=== PATIENT | female | born 1955 | race Two or more races ===

== ENCOUNTER 2020-03-06 16:15 | Inpatient (IN) | payer MEDICAID, OTHER ==
[~2020-03-06] VITALS: Ht 165.1 cm; Wt 99.0 kg
[2020-03-06] MEDS ORDERED: SODIUM CHLORIDE 0.9% 1,000 ML IVB ONE (18:15)
[2020-03-06] MEDS ORDERED: metroNIDAZOLE 500MG/100ML 100 ML IV ONE (19:30)
[2020-03-06] MEDS ORDERED: AZITHROMYCIN 500MG/ 250ML 250 ML IV ONE (19:30)
[2020-03-06 19:49] LABS: Basophils # (auto) 0 10 ^3/uL (0-0.2); Basophils % (auto) 0.4 % (0.0-2.0); Eosinophils # (auto) 0 10 ^3/uL (0-0.8); Eosinophils % (auto) 0.4 % (0.0-7.0); Hematocrit 32.9 % (36.0-46.0); Hemoglobin 10.9 g/dL (12.2-16.2); Lymphocytes # (auto) 0.6 10 ^3/uL (0.4-5.4); Mean Corpuscular Hemoglobin 30.9 pg (28.0-32.0); Mean Corpuscular Volume 93.6 fL (80.0-100.0); Monocytes # (auto) 0.3 10 ^3/uL (0-1.3); Neutrophils # (auto) 1.3 10 ^3/uL (1.6-8.6); Neutrophils % (auto) 58.2 % (37.0-80.0); Nucleated Red Blood Cells % 0.4 %; Platelet Count (auto) 107 10^3/uL (140-450); Red Blood Cells 3.51 10^6/uL (4.0-5.20); Red Cell Distribution Width 14.6 % (11.8-14.3); White Blood Cell 2.2 10^3/uL (4.4-10.8)
[2020-03-06 20:03] LABS: INR 1.09 (0.9-1.15); Partial Thromboplastin Time 36.6 sec (23.0-31.2)
[2020-03-06 20:06] LABS: Calcium 8.6 mg/dL (8.5-10.1); Potassium 4.6 mmol/L (3.5-5.1)
[2020-03-06 20:13] LABS: Bilirubin, Total 0.6 mg/dL (0.2-1.0); Total Protein 8.9 g/dL (6.4-8.2)
[2020-03-06] MEDS ORDERED: DEXTROSE 50% SYRINGE 50 ML IV ONE ×2 (20:27→20:28)
[2020-03-07] MEDS ORDERED: DEXTROSE (50%) 50ML SYRG IV ONE (01:00)
[2020-03-07] MEDS: ACCU-CHEK COMFORT CURVE STRIP VI SCH ×4 (05:48→18:03)
[2020-03-07 07:33] LABS: Basophils # (auto) 0 10 ^3/uL (0-0.2); Eosinophils # (auto) 0 10 ^3/uL (0-0.8); Lymphocytes # (auto) 0.4 10 ^3/uL (0.4-5.4); Monocytes # (auto) 0.2 10 ^3/uL (0-1.3); Neutrophils # (auto) 1.3 10 ^3/uL (1.6-8.6); Neutrophils % (auto) 69.4 % (37.0-80.0); Nucleated Red Blood Cells % 0.2 %; Platelet Count (auto) 91 10^3/uL (140-450)
[2020-03-07 07:36] LABS: Basophils % (auto) 0.3 % (0.0-2.0); Eosinophils % (auto) 0.3 % (0.0-7.0); Hematocrit 28.4 % (36.0-46.0); Hemoglobin 9.4 g/dL (12.2-16.2); Lymphocytes % (auto) 19.2 % (10.0-50.0); Mean Corpuscular Hemoglobin 31.2 pg (28.0-32.0); Mean Corpuscular Hgb Conc. 33.1 g/dL (32.0-36.0); Monocytes % (auto) 10.8 % (0.0-12.0); Red Blood Cells 3.02 10^6/uL (4.0-5.20); Red Cell Distribution Width 14.7 % (11.8-14.3)
[2020-03-07 07:45] LABS: Potassium 4.6 mmol/L (3.5-5.1)
[2020-03-07 07:57] LABS: Albumin 3.5 g/dL (3.4-5.0); BUN/Creatinine Ratio 4.2; Bilirubin, Total 0.5 mg/dL (0.2-1.0); Total Protein 7.4 g/dL (6.4-8.2)
[2020-03-07 08:07] LABS: Calcium 7.6 mg/dL (8.5-10.1)
[2020-03-07 08:33] LABS: White Blood Cell 1.9 10^3/uL (4.4-10.8)
[2020-03-07] MEDS ORDERED: SODIUM CHL 0.9% 1000 ML BAG XX ONE (09:15)
[2020-03-07] MEDS ORDERED: PIPERACILLIN-TAZOB 2.25GM 50 ML IV SCH (10:00)
[2020-03-07] MEDS: ZINC SULFATE 220mg CAP or TAB PO SCH (10:00)
[2020-03-07] MEDS: DexAMETHasone SOD PHOS 10MG/1ML VIAL INJ IV SCH (10:00)
[2020-03-07] MEDS: ASCORBIC ACID 500 MG TAB PO SCH ×2 (10:00→21:01)
[2020-03-07] MEDS: CHOLECALCIFEROL (VITD3) 2,000 UNIT CAP PO SCH (10:00)
[2020-03-07] MEDS ORDERED: MORPHINE SULF INJ 2 MG/ML SYRINGE 1ML IV PRN (12:00)
[2020-03-07] MEDS: AZITHROMYCIN 500MG/ 250ML 250 ML IV SCH (16:28)
[2020-03-07] MEDS ORDERED: EPOETIN ALFA 10,000 UNIT/1 ML VIAL SC ONE (21:00)
[2020-03-08] MEDS: ACCU-CHEK COMFORT CURVE STRIP VI SCH ×4 (00:17→18:44)
[2020-03-08 04:40] LABS: Basophils # (auto) 0 10 ^3/uL (0-0.2); Basophils % (auto) 0.4 % (0.0-2.0); Eosinophils # (auto) 0 10 ^3/uL (0-0.8); Eosinophils % (auto) 0.1 % (0.0-7.0); Hematocrit 28.7 % (36.0-46.0); Hemoglobin 9.7 g/dL (12.2-16.2); Lymphocytes # (auto) 0.5 10 ^3/uL (0.4-5.4); Lymphocytes % (auto) 17.3 % (10.0-50.0); Mean Corpuscular Hemoglobin 31.2 pg (28.0-32.0); Mean Corpuscular Hgb Conc. 33.8 g/dL (32.0-36.0); Mean Corpuscular Volume 92.2 fL (80.0-100.0); Monocytes # (auto) 0.3 10 ^3/uL (0-1.3); Monocytes % (auto) 10.5 % (0.0-12.0); Neutrophils # (auto) 1.9 10 ^3/uL (1.6-8.6); Neutrophils % (auto) 71.7 % (37.0-80.0); Nucleated Red Blood Cells % 0.1 %; Platelet Count (auto) 95 10^3/uL (140-450); Red Blood Cells 3.11 10^6/uL (4.0-5.20); Red Cell Distribution Width 14.2 % (11.8-14.3); White Blood Cell 2.7 10^3/uL (4.4-10.8)
[2020-03-08 04:55] LABS: Calcium 8.7 mg/dL (8.5-10.1); Magnesium 2.3 mg/dL (1.6-2.6); Potassium 4.5 mmol/L (3.5-5.1)
[2020-03-08] MEDS ORDERED: REMDESIVIR PER PHARMACY 0 ML IV SCH (09:15)
[2020-03-08] MEDS: ASCORBIC ACID 500 MG TAB PO SCH ×2 (10:00→22:00)
[2020-03-08] MEDS: AZITHROMYCIN 500MG/ 250ML 250 ML IV SCH (10:00)
[2020-03-08] MEDS: DexAMETHasone SOD PHOS 10MG/1ML VIAL INJ IV SCH (10:00)
[2020-03-08] MEDS: CHOLECALCIFEROL (VITD3) 2,000 UNIT CAP PO SCH (10:00)
[2020-03-08] MEDS: ZINC SULFATE 220mg CAP or TAB PO SCH (10:00)
[2020-03-08] MEDS: REMDESIVIR 200 MG in NS 210ml LOADING DOSE ADULT IV ONE ×2 (14:18→15:49)
[2020-03-09] VITALS: BP 143/58
[2020-03-09] MEDS ORDERED: GLYB1.257 PO (03:37)
[2020-03-09] MEDS ORDERED: LEV50T PO (03:37)
[2020-03-09] MEDS ORDERED: CINA30TA2 PO (03:37)
[2020-03-09] MEDS ORDERED: SEVE800T8 PO (03:37)
[2020-03-09] MEDS ORDERED: FOLI1TAB6 PO (03:37)
[2020-03-09] MEDS ORDERED: HYDR-4833 PO (03:37)
[2020-03-09] MEDS ORDERED: APIX5TAB PO (03:37)
[2020-03-09] MEDS ORDERED: ATOR10TA52 PO (03:37)
[2020-03-09] MEDS ORDERED: GABA100C9 PO (03:37)
[2020-03-09] MEDS ORDERED: MIDO5TAB2 PO (03:37)
[2020-03-09] MEDS ORDERED: B-COTAB10 PO (03:37)
[2020-03-09 06:35] LABS: Basophils # (auto) 0 10 ^3/uL (0-0.2); Basophils % (auto) 0.1 % (0.0-2.0); Eosinophils # (auto) 0 10 ^3/uL (0-0.8); Hematocrit 33.5 % (36.0-46.0); Lymphocytes # (auto) 0.3 10 ^3/uL (0.4-5.4); Lymphocytes % (auto) 15.1 % (10.0-50.0); Mean Corpuscular Hemoglobin 30.3 pg (28.0-32.0); Mean Corpuscular Hgb Conc. 32.8 g/dL (32.0-36.0); Mean Corpuscular Volume 92.4 fL (80.0-100.0); Monocytes # (auto) 0.2 10 ^3/uL (0-1.3); Monocytes % (auto) 9.4 % (0.0-12.0); Neutrophils # (auto) 1.5 10 ^3/uL (1.6-8.6); Neutrophils % (auto) 75.4 % (37.0-80.0); Nucleated Red Blood Cells % 0.1 %; Platelet Count (auto) 106 10^3/uL (140-450); Red Blood Cells 3.63 10^6/uL (4.0-5.20); Red Cell Distribution Width 14.4 % (11.8-14.3); White Blood Cell 2.1 10^3/uL (4.4-10.8)
[2020-03-09 07:11] LABS: BUN/Creatinine Ratio 5.4; Magnesium 2.8 mg/dL (1.6-2.6)
[2020-03-09] MEDS: ACCU-CHEK COMFORT CURVE STRIP VI SCH ×5 (07:12→22:00)
[2020-03-09 08:00] VITALS: BP 99/53
[2020-03-09] MEDS: CHOLECALCIFEROL (VITD3) 2,000 UNIT CAP PO SCH ×2 (10:00→12:17)
[2020-03-09] MEDS: ZINC SULFATE 220mg CAP or TAB PO SCH ×2 (10:00→12:17)
[2020-03-09] MEDS: ASCORBIC ACID 500 MG TAB PO SCH ×3 (10:00→22:48)
[2020-03-09] MEDS: AZITHROMYCIN 500MG/ 250ML 250 ML IV SCH (12:16)
[2020-03-09] MEDS: DexAMETHasone SOD PHOS 10MG/1ML VIAL INJ IV SCH (12:17)
[2020-03-09] MEDS: HEPARIN SODIUM (PORCINE) 5000 UNITS/ML 1ML VIAL SC SCH ×2 (14:56→22:49)
[2020-03-09 16:29] VITALS: BP 127/54
[2020-03-09] MEDS: REMDESIVIR 100 MG in SODIUM CHL 0.9% 250 ML IV SCH (17:47)
[2020-03-09] MEDS ORDERED: DEXTROSE (50%) 50ML SYRG IV PRN (19:00)
[2020-03-09] MEDS: metroNIDAZOLE 500MG/100ML 100 ML IV SCH (22:47)
[2020-03-09] MEDS: InsuLIN REG 1unit/0.01ml Soln (100units/ml) SC SCH (22:52)
[2020-03-10] VITALS: BP 118/43
[2020-03-10] MEDS: HEPARIN SODIUM (PORCINE) 5000 UNITS/ML 1ML VIAL SC SCH ×3 (06:20→21:48)
[2020-03-10] MEDS: metroNIDAZOLE 500MG/100ML 100 ML IV SCH ×3 (06:20→21:47)
[2020-03-10] MEDS: ACCU-CHEK COMFORT CURVE STRIP VI SCH ×4 (06:22→21:48)
[2020-03-10] MEDS: InsuLIN REG 1unit/0.01ml Soln (100units/ml) SC SCH ×4 (06:22→21:48)
[2020-03-10] MEDS ORDERED: SODIUM CHL 0.9% 1000 ML BAG XX ONE (07:00)
[2020-03-10 08:00] VITALS: BP 122/70
[2020-03-10] MEDS: DexAMETHasone SOD PHOS 10MG/1ML VIAL INJ IV SCH (09:10)
[2020-03-10] MEDS: AZITHROMYCIN 500MG/ 250ML 250 ML IV SCH (09:10)
[2020-03-10] MEDS: ASCORBIC ACID 500 MG TAB PO SCH ×2 (09:11→21:47)
[2020-03-10] MEDS: ZINC SULFATE 220mg CAP or TAB PO SCH (09:11)
[2020-03-10] MEDS: CHOLECALCIFEROL (VITD3) 2,000 UNIT CAP PO SCH (09:11)
[2020-03-10] MEDS ORDERED: CIPROFLOXACIN 400MG/200ML 200 ML IV SCH (10:00)
[2020-03-10 10:05] LABS: Albumin 3.3 g/dL (3.4-5.0); Calcium 8.6 mg/dL (8.5-10.1); Potassium 5.5 mmol/L (3.5-5.1)
[2020-03-10 10:33] LABS: Bilirubin, Total 0.5 mg/dL (0.2-1.0); Total Protein 7.9 g/dL (6.4-8.2)
[2020-03-10 16:00] VITALS: BP 107/45
[2020-03-10] MEDS: REMDESIVIR 100 MG in SODIUM CHL 0.9% 250 ML IV SCH (17:04)
[2020-03-10] MEDS: ALBUTEROL SULF HFA 90MCG INH 200DOSE IN PRN (19:30)
[2020-03-10] MEDS: PANTOPRAZOLE 40 MG/10 ML VIAL INJ IV SCH (21:47)
[2020-03-11] VITALS: BP 118/84
[2020-03-11] MEDS: metroNIDAZOLE 500MG/100ML 100 ML IV SCH ×2 (05:28→14:00)
[2020-03-11] MEDS: HEPARIN SODIUM (PORCINE) 5000 UNITS/ML 1ML VIAL SC SCH (05:29)
[2020-03-11] MEDS: InsuLIN REG 1unit/0.01ml Soln (100units/ml) SC SCH ×2 (06:31→11:30)
[2020-03-11] MEDS: ACCU-CHEK COMFORT CURVE STRIP VI SCH ×2 (06:31→11:30)
[2020-03-11 08:00] VITALS: BP 154/64
[2020-03-11 09:19] LABS: Basophils # (auto) 0 10 ^3/uL (0-0.2); Eosinophils # (auto) 0 10 ^3/uL (0-0.8); Hematocrit 34.6 % (36.0-46.0); Hemoglobin 11.3 g/dL (12.2-16.2); Lymphocytes # (auto) 0.3 10 ^3/uL (0.4-5.4); Lymphocytes % (auto) 8.2 % (10.0-50.0); Mean Corpuscular Hemoglobin 29.7 pg (28.0-32.0); Mean Corpuscular Hgb Conc. 32.7 g/dL (32.0-36.0); Mean Corpuscular Volume 90.8 fL (80.0-100.0); Monocytes # (auto) 0.3 10 ^3/uL (0-1.3); Monocytes % (auto) 10.2 % (0.0-12.0); Neutrophils # (auto) 2.8 10 ^3/uL (1.6-8.6); Neutrophils % (auto) 81.6 % (37.0-80.0); Nucleated Red Blood Cells % 0.1 %; Platelet Count (auto) 145 10^3/uL (140-450); Red Blood Cells 3.82 10^6/uL (4.0-5.20); Red Cell Distribution Width 14.5 % (11.8-14.3); White Blood Cell 3.4 10^3/uL (4.4-10.8)
[2020-03-11] MEDS: ALBUTEROL SULF HFA 90MCG INH 200DOSE IN PRN (09:28)
[2020-03-11 09:32] LABS: Potassium 4.7 mmol/L (3.5-5.1)
[2020-03-11 09:43] LABS: Bilirubin, Total 0.6 mg/dL (0.2-1.0); Calcium 8.7 mg/dL (8.5-10.1); Magnesium 2.5 mg/dL (1.6-2.6); Total Protein 7.3 g/dL (6.4-8.2)
[2020-03-11] MEDS: ZINC SULFATE 220mg CAP or TAB PO SCH (10:00)
[2020-03-11] MEDS: AZITHROMYCIN 500MG/ 250ML 250 ML IV SCH (10:00)
[2020-03-11] MEDS: PANTOPRAZOLE 40 MG/10 ML VIAL INJ IV SCH (10:00)
[2020-03-11] MEDS: ASCORBIC ACID 500 MG TAB PO SCH (10:02)
[2020-03-11] MEDS: CHOLECALCIFEROL (VITD3) 2,000 UNIT CAP PO SCH (10:03)
[2020-03-11] MEDS: DexAMETHasone SOD PHOS 10MG/1ML VIAL INJ IV SCH (10:03)
[2020-03-11 14:32] VITALS: BP 154/64
[2020-03-11] MEDS: REMDESIVIR 100 MG in SODIUM CHL 0.9% 250 ML IV SCH (15:21)
[2020-03-11 16:00] VITALS: BP 140/71
[2020-03-11] MEDS ORDERED: CIPROFLOXACIN HYDROCHLORIDE 250 MG TAB PO SCH ×2 (22:00)
[2020-03-12] MEDS ORDERED: SODIUM CHL 0.9% 1000 ML BAG XX ONE (07:00)
== END 2020-03-11 17:30 | disposition home or self-care (01) | DRG 720 ==
LOC: EDBD 16:15 → ER 16:15 → TELE 16:16 → TELE-EAST 03-08 23:47
PROVIDERS: ADMIT Nurse Practitioner Family; ATTEND Internal Medicine
PROC: 5A1D70Z Performance of Urinary Filtration, Intermittent, Less than 6 Hours Per Day (ICD-10-PCS; principal; 2020-03-08)
PROC: XW033E5 Introduction of Remdesivir Anti-infective into Peripheral Vein, Percutaneous Approach, New Technology Group 5 (ICD-10-PCS; 2020-03-08)
PROC: 5A1D70Z Performance of Urinary Filtration, Intermittent, Less than 6 Hours Per Day (ICD-10-PCS; 2020-03-10)
DX: A41.89 Other specified sepsis (principal); U07.1 COVID-19; J12.89 Other viral pneumonia; J96.01 Acute respiratory failure with hypoxia; K52.9 Noninfective gastroenteritis and colitis, unspecified; K80.20 Calculus of gallbladder without cholecystitis without obstruction; N18.6 End stage renal disease; Z99.2 Dependence on renal dialysis; D63.8 Anemia in other chronic diseases classified elsewhere; D69.6 Thrombocytopenia, unspecified; E87.1 Hypo-osmolality and hyponatremia; E66.01 Morbid (severe) obesity due to excess calories; Z68.34 Body mass index [BMI] 34.0-34.9, adult; Z88.0 Allergy status to penicillin; E11.22 Type 2 diabetes mellitus with diabetic chronic kidney disease; E78.5 Hyperlipidemia, unspecified; E87.5 Hyperkalemia; E88.09 Other disorders of plasma-protein metabolism, not elsewhere classified; I12.0 Hypertensive chronic kidney disease with stage 5 chronic kidney disease or end stage renal disease; Z79.4 Long term (current) use of insulin; Z82.49 Family history of ischemic heart disease and other diseases of the circulatory system
CPT/HCPCS: 36415; 71045; 74176; 80048; 80053; 82962; 83735; 84484; 85025; 85610; 85730; 87426; 87493; 90935; 93005; 96374; C9113; G0378; J0885; J1100; J1815; J3490